=== PATIENT | male | born 1980 | race Caucasian/White ===

== ENCOUNTER 2024-09-04 10:25 | Emergency (ER) | payer BC, SELFPAY ==
[2024-09-04 10:31] VITALS: BP 125/80; PULSE 62; TEMP 36.6; O2SAT 97; BMI 27.5
--- NOTE | 2024-09-04 10:36 | XR_ITS ---
[address] [address] Patient Name: RJ MORENO MRN: [id number] date: 1980 Sex: M Assigned Patient Location: ED.MAIN Current Patient Location: ER Accession/Order Number: [id number] Exam Date: 09/04/2024 10:45 Report Date: 09/04/2024 12:07 At the request of: MARY ANNE Procedure: XR chest 2V EXAM: XR chest 2V INDICATION: cough. COMPARISON: None. TECHNIQUE: Two views of the chest FINDINGS: Normal cardiomediastinal contours. Normal pulmonary vasculature. No acute infiltrative process. No pleural effusion or pneumothorax. No acute osseous abnormality. XR/XR chest 2V IMPRESSION: No acute cardiopulmonary process. Electronically authenticated by: DAMION PRATER Date: 09/04/2024 12:07
[2024-09-04 11:17] LABS: Influenza Virus A Antigen Negative; Influenza Virus B Antigen Negative
[2024-09-04 11:18] LABS: Internal Control Within Normal Limits; SARS-CoV-2 Ag NEGATIVE (NEGATIVE); Strep A Antigen Screen Negative
--- NOTE | 2024-09-04 12:26 | ED_ITS ---
HPI HPI - General Adult General Chief complaint: Upper Respiratory Infection Stated complaint: COUGH, SHORTNESS OF BREATH Time Seen by Provider: 09/04/24 11:07 Source: patient Mode of arrival: walk-in History of Present Illness HPI narrative: The patient have a history of smoking cigarette and he quit a few years ago, coming to the ER with this ongoing cough that been going on at least since Bill time which is almost 2 months ago, the patient mentioned that he was treated twice with antibiotics during those 2 months in addition to prednisone once Patient denies any nausea vomiting or any other concerns He does have some sore throat too Related Data Previous Rx's ?Medication ?Instructions ?Recorded guaifenesin 600 mg tablet, 600 mg PO Q12H PRN cough #10 tabs 09/04/24 extended release 12 hr (Mucinex) prednisone 20 mg tablet 40 mg (2 x 20 mg) PO DAILY 5 days 09/04/24 #10 tabs Allergies Allergy/AdvReac Type Severity Reaction Status Date / Time No Known Drug Allergies Allergy Verified 09/04/24 10:36 Opioid HPI Opioid Management Most Recent Opioid Data: No Data to Display Review of Systems ROS Status of ROS 10 or more systems reviewed and unremark able except as noted in history and below PFSH PFSH Social History Little interest or pleasure in doing things: not at all Feeling down, depressed, or hopeless: not at all Exam Narrative Exam Narrative: Nurses notes and vital signs reviewed and patient is not hypoxic. General: Well-appearing and in no apparent distress. Skin: Warm, dry, no pallor noted. No rash. Head: Normocephalic, atraumatic. Neck: Supple, non-tender. Eye: Pupils are equal, round and EOMI. No scleral icterus. Ears, Nose, Mouth, and Throat: TM are clear, no nasal mucosal hypertrophy. Oral mucosa is moist, no posterior oropharynx erythema, uvula is mid-line Cardiovascular: Regular Rate and Rhythm without murmur, gallop or rub. Respiratory: No accessory muscle use or respiratory distress. Lungs are clear to auscultation, no wheezing, rales or rhonchi but the patient does have a mild wheeze when he coughs Chest Wall: no tenderness Back: No midline thoracic or lumbar vertebral tenderness. No CVA tenderness Musculoskeletal: normal ROM, no calf or popliteal tenderness, no lower extremity edema/swelling GI: Abdomen is soft, non-distended. Normal bowel sounds. No masses appreciated. No tenderness to palpation. No rebound, guarding, or rigidity noted. Neurological: A&O x4. No cranial nerve dysfunction observed. No truncal ataxia. Moves all extremities. Sensation intact. Psychiatric: Cooperative and interactive. Normal mood and affect. Constitutional Vital Signs, click to edit/add: Last Vital Signs Temp 97.8 F 09/04/24 10:31 Pulse 62 09/04/24 10:31 Resp 18 09/04/24 10:31 BP 125/80 09/04/24 10:31 Pulse Ox 97 09/04/24 10:31 O2 Del Method Room Air 09/04/24 10:31 Course Vital Signs Vital signs: Vital Signs Temperature 97.8 F 09/04/24 10:31 Pulse Rate 62 09/04/24 10:31 Respiratory Rate 18 09/04/24 10:31 Blood Pressure 125/80 09/04/24 10:31 Pulse Oximetry 97 09/04/24 10:31 Oxygen Delivery Method Room Air 09/04/24 10:31 Temperature 97.8 F 09/04/24 10:31 Pulse Rate 62 09/04/24 10:31 Respiratory Rate 18 09/04/24 10:31 Blood Pressure 125/80 09/04/24 10:31 Pulse Oximetry 97 09/04/24 10:31 Oxygen Delivery Method Room Air 09/04/24 10:31 Medical Decision Making [facility] Narrative Medical decision making narrative: Chest x-ray showed no acute pathology and the COVID and flu and strep test are negative Right now the patient will be treated with prednisone in addition to Mucinex as possible viral bronchitis Patient was instructed about the importance of follow-up with primary care for further evaluation because of his cough that been continuous although with the patient history seems like it is getting better and starting again after a while which could be for a different reason The patient is to follow up with primary care physician in next 2-3 days or to return to the emergency department should any of the signs or symptoms worsen or new symptoms develop. The patient agrees with the following Diagnosis and Treatment plan and the patient will be discharged home. Lab Data Labs: Lab Results 09/04/24 Range/Units 10:40 Influenza Type A Ag Negative Influenza Type B Ag Negative SARS-CoV-2 Ag (CV2AG) Negative (NEGATIVE) Streptococcus Screen Negative Discharge Plan Discharge Chief Complaint: Upper Respiratory Infection Clinical Impression: Bronchitis Patient Disposition: Home, Self-Care Time of Disposition Decision: 12:24 Condition: Good Prescriptions / Home Meds: New guaifenesin [Mucinex] 600 mg tablet extended release 12hr 600 mg PO Q12H PRN (Reason: cough) Qty: 10 0RF prednisone 20 mg tablet 40 mg PO DAILY 5 Days Qty: 10 0RF Print Language: Bahraini Instructions: Acute Bronchitis (ED) Referrals: AARTI PERALES [Primary Care Provider] - 1 week Discharge Date/Time: 09/04/24 12:34
== END 2024-09-04 12:34 | disposition home or self-care (01) ==
PROVIDERS: Emergency Provider Emergency Medicine; PCP Nurse Practitioner
DX: J40 Bronchitis, not specified as acute or chronic (principal); Z87.891 Personal history of nicotine dependence
CPT/HCPCS: 71046; 87070; 87804; 87811; 87880; 99284